=== PATIENT | female | born 1960 | race Caucasian/White ===

== ENCOUNTER 2020-11-06 10:00 | Day surgery (SDC) | payer OTHER, SELFPAY ==
[~2020-11-06] VITALS: Ht 132.1 cm; Wt 54.4 kg
[2020-11-06] MEDS ORDERED: fentaNYL citrate 0.05 MG/ML VIAL ONE (10:49)
[2020-11-06] MEDS ORDERED: LIDOCAINE 2% 100 MG/5 ML UJET TP ONE (10:49)
[2020-11-06] MEDS ORDERED: fentaNYL citrate 0.05 MG/ML VIAL IVP ONE (13:15)
== END 2020-11-06 12:45 | disposition home or self-care (01) ==
LOC: MMU 10:00 → MDS 10:00
PROVIDERS: ATTEND Internal Medicine Gastroenterology
DX: Z12.11 Encounter for screening for malignant neoplasm of colon (principal); D12.0 Benign neoplasm of cecum; K57.30 Diverticulosis of large intestine without perforation or abscess without bleeding; M19.90 Unspecified osteoarthritis, unspecified site; Z90.49 Acquired absence of other specified parts of digestive tract; Z79.899 Other long term (current) drug therapy; Z20.828 Contact with and (suspected) exposure to other viral communicable diseases
CPT/HCPCS: 45385; J3010; U0003

== ENCOUNTER 2024-05-13 09:41 | Day surgery (SDC) | payer OTHER ==
[~2024-05-13] VITALS: Ht 132.1 cm; Wt 54.4 kg
[2024-05-13] MEDS: MIDAZOLAM 5 MG/5 ML VIAL ONE (12:56)
[2024-05-13] MEDS: fentaNYL citrate 0.05 MG/ML VIAL ONE (12:57)
== END 2024-05-13 14:30 | disposition home or self-care (01) ==
LOC: MMU 09:41 → MOR 09:41
PROVIDERS: ATTEND Internal Medicine Gastroenterology
DX: K21.00 Gastro-esophageal reflux disease with esophagitis, without bleeding (principal); K44.9 Diaphragmatic hernia without obstruction or gangrene; K31.89 Other diseases of stomach and duodenum; E78.5 Hyperlipidemia, unspecified; Z90.49 Acquired absence of other specified parts of digestive tract; Z90.710 Acquired absence of both cervix and uterus; Z79.899 Other long term (current) drug therapy; Z98.890 Other specified postprocedural states
CPT/HCPCS: 43235; J2250; J3010